=== PATIENT | male | born 1970 | race Caucasian/White ===

== ENCOUNTER 2023-06-16 08:00 | Outpatient (CLI) | payer BC ==
--- NOTE | 2023-06-16 11:53 | XRAY Report ---
PROCEDURE: Lumbar Spine 4V INDICATIONS: SPRAIN OF LUMBAR SPINE TECHNIQUE: 3 view(s) of the lumbar spine were acquired. COMPARISON: None. FINDINGS: Bones: Vertebral body height and alignment is maintained. No suspicious bony lesions. Mild generativ e disc space narrowing and hypertrophic facet joints in the lower lumbar spine Soft tissues: Overlying bowel gas pattern is normal. No suspicious soft tissue calcifications. IMPRESSION: Mild degenerative disc disease and arthropathy lower lumbar spine. No acute fracture or traumatic malalignment. Reviewed by: Darrius Rojo MD on 06/16/2023 10:51 AM [facility] Approved by: Darrius Rojo MD on 06/16/2023 10:51 AM [facility] Station ID: [id number]
== END 2023-06-16 23:59 | disposition home or self-care (01) ==
LOC: DI.S 08:00
PROVIDERS: ATTEND Physician Assistant Medical
DX: M51.36 Other intervertebral disc degeneration, lumbar region (principal); M47.816 Spondylosis without myelopathy or radiculopathy, lumbar region